=== PATIENT | male | born 1975 | race Caucasian/White ===

== ENCOUNTER 2018-08-21 05:56 | Emergency (ER) ==
[2018-08-21 06:08] VITALS: BP 138/91; TEMP 97.5; BMI 34.4
--- NOTE | 2018-08-21 06:29 | ED.PDOC ---
General ED Provider: Dr. SARA BRYAN Chief Complaint: Non-specific Complaint Stated Complaint: Patient is a 43 year old male who states that while living in the [place] being homeless, got some stickers stuck on the hands from sticker kate and has been trying to remove them resulting in numerous sores on hands and fingers. since he pick at them and are painful. Time Seen by Physician: 06:27 Mode of Arrival: Walk-In Information Source: Patient Exam Limitations: No limitations Nursing and Triage Documentation Reviewed and Agree: Yes Does patient meet sepsis criteria?: Yes If yes, has appropriate treatment been initiated?: No System Inflammatory Response Syndrome: Not Applicable Sepsis Protocol: For patient's 13 years and over: Temp is 96.8 and below OR 101 and greater Pulse >90 BPM Resp >20/minute Acutely Altered Mental Status Are patient's symptoms suggestive of a new infection, such as: -Pneumonia -Skin, Soft Tissue -Endocarditis -UTI -Bone, Joint Infection -Implantable Device -Acute Abdominal Infection -Wound Infection -Meningitis -Blood Stream Catheter Infection -Unknown Review of Systems - Review Of Systems Constitutional: Reports: No symptoms Eyes: Reports: No symptoms Ears, Nose, Mouth, Throat: Reports: No symptoms Respiratory: Reports: No symptoms Cardiac: Reports: No symptoms GI: Reports: No symptoms : Reports: No symptoms Musculoskeletal: Reports: No symptoms Skin: Reports: Lesions (on the hands ), Rash (hands and forhead. ) Neurological: Reports: Anxiety Endocrine: Reports: No symptoms Hematologic/Lymphatic: Reports: No symptoms All Other Systems: Reviewed and Negative Past Medical History - Past Medical History Previously Healthy: Yes Endocrine: Reports: None Cardiovascular: Reports: None Respiratory: Reports: None Hematological: Reports: None Gastrointestinal: Reports: None Genitourinary: Reports: None Neuro/Psych: Reports: None Musculoskeletal: Reports: Arthritis Cancer: Reports: None - Surgical History General Surgical History: Reports: Appendectomy, Orthopedic (knee surgery arthroscope) - Family History Family History: Reports: None - Social History Smoking Status: Current every day smoker, Heavy tobacco smoker Hx Substance Use: No Alcohol Screening: None - Immunizations Tetanus Shot up to Date: Yes Physical Exam - Physical Exam Appearance: Ill-appearing, Obese Ill-appearing: Mild Pain Distress: Moderate Eyes: JOANN, EOMI, Conjunctiva clear Neck: Supple Respiratory: Airway patent, Breath sounds clear, Breath sounds equal, Respirations nonlabored Cardiovascular: RRR, Pulses normal, No rub, No murmur Musculoskeletal: Normal strength, ROM intact, No edema, No calf tenderness Skin: Warm, Dry Neurological: Sensation intact, Motor intact, Reflexes intact, Cranial nerves intact, Alert, Oriented Psychiatric: Anxious Critical Care Note - Critical Care Note Total Time (mins): 0 Course - Course Orders, Labs, Meds: Orders Category Date Time Status Diphenhydramine HCl [Benadryl] MEDS 08/21/18 06:33 Discontinued 50 mg PO ONCE STA Ibuprofen [Motrin] MEDS 08/21/18 06:33 Discontinued 800 mg PO ONCE STA Prednisone MEDS 08/21/18 06:34 Discontinued 40 mg PO ONCE STA Medications Discontinued Medications Generic Name Dose Route Start Last Admin Trade Name Freq PRN Reason Stop Dose Admin Diphenhydramine HCl 50 mg 08/21/18 06:33 08/21/18 06:49 Benadryl PO 08/21/18 06:34 50 mg ONCE STA Administration Ibuprofen 800 mg 08/21/18 06:33 08/21/18 06:50 Motrin PO 08/21/18 06:34 800 mg ONCE STA Administration Prednisone 40 mg 08/21/18 06:34 08/21/18 06:50 Prednisone PO 08/21/18 06:35 40 mg ONCE STA Administration Vital Signs: Temp Pulse Resp BP Pulse Ox 08/21/18 05:59 97.5 F L 88 22 138/91 H 94 L Departure - Departure Time of Disposition: 06:52 Disposition: HOME SELF-CARE Discharge Problem: Neurodermatitis, localized, Dermatitis Instructions: Contact Dermatitis (ED) Condition: Stable Pt referred to PMD for follow-up: Yes IPMP verified?: No Additional Instructions: Take Medications as prescribed follow up with the clinic in 3 days. Prescriptions: Sulfamethoxazole/Trimethoprim [Bactrim Ds 800/160 mg] 1 tab PO Q12HR #20 tablet Diphenhydramine HCl [Benadryl Allergy] 25 mg PO TID PRN #30 tablet PRN Reason: Rash Prednisone 20 mg PO DAILYWM #5 tablet Allergies/Adverse Reactions: Allergies amoxicillin [From Augmentin] Adverse Reaction (Verified 08/21/18 06:09) Vomiting cephalexin [From Keflex] Adverse Reaction (Verified 08/21/18 06:09) Vomiting ciprofloxacin [From Cipro] Adverse Reaction (Verified 08/21/18 06:09) Vomiting clavulanic acid [From Augmentin] Adverse Reaction (Verified 08/21/18 06:09) Vomiting Home Medications: Ambulatory Orders Diphenhydramine HCl [Benadryl Allergy] 25 mg PO TID PRN #30 tablet 08/21/18 Prednisone 20 mg PO DAILYWM #5 tablet 08/21/18 Sulfamethoxazole/Trimethoprim [Bactrim Ds 800/160 mg] 1 tab PO Q12HR #20 tablet 08/21/18 Disposition Discussed With: Patient
[2018-08-21] MEDS ORDERED: MOTRIN PO STA (06:33)
[2018-08-21] MEDS ORDERED: BENADRYL PO STA (06:33)
[2018-08-21] MEDS ORDERED: PREDNISONE PO STA (06:34)
== END 2018-08-21 07:20 | disposition home or self-care (01) ==
LOC: ED 05:56
DX: L20.81 Atopic neurodermatitis (principal); F17.210 Nicotine dependence, cigarettes, uncomplicated
CPT/HCPCS: 99282